=== PATIENT | male | born 1965 | race Caucasian/White ===

== ENCOUNTER → 2023-01-16 16:26 | Outpatient (CLI) | payer BC, SELFPAY ==
[2023-01-16 16:39] LABS: Microscopic, Urine URINE MICROSCOPIC (MICROSCOPIC)
[2023-01-16 17:14] LABS: Appearance,Urine CLEAR (Clear); Bilirubin,Urine Negative (Negative); Blood, Urine Negative (Negative); Color,Urine YELLOW (Yellow); Glucose,Urine (UA) Negative (Negative); Ketones,Urine Negative (Negative); Leukocyte Esterase,Urine Negative (Negative); Nitrate,Urine Negative (Negative); Protein,Urine Negative (Negative)
[2023-01-16 17:28] LABS: Microalbumin < 6.000 mg/L (0-16.7)
[2023-01-16 17:37] LABS: WBC,Urine Occasional #/hpf (0-3)
== END ==
PROVIDERS: PCP Family Medicine; Visit Provider Family Medicine
DX: I10 Essential (primary) hypertension (principal)
CPT/HCPCS: 81001; 82043

== ENCOUNTER 2023-11-23 08:46 | Emergency (ER) | payer BC, SELFPAY ==
[2023-11-23 08:55] VITALS: BP 153/94; PULSE 74; RESP 20; TEMP 37.2; O2SAT 98; BMI 29.2
--- NOTE | 2023-11-23 09:16 | ED_ITS ---
Discharge Plan Disposition Patient Disposition: Home, Self-Care Condition: Good Prescriptions Prescriptions: New guaifenesin [Mucinex] 600 mg tablet extended release 12hr 1,200 mg PO BID PRN (Reason: cough) Qty: 20 0RF azithromycin [Zithromax Z-Cecil] 250 mg tablet See Rx Instructions .ROUTE .COMPLEX 5 Days Qty: 6 0RF Rx Instructions: For 250 mg dose pack: take 500 mg today (day 1), then 250 mg for 4 days (days 2-5) prednisone 20 mg tablet 20 mg PO BID 5 Days Qty: 10 0RF albuterol sulfate [Proventil HFA] 90 mcg/actuation HFA aerosol inhaler 2 puff inhalation Q6H PRN (Reason: shortness of breath or wheezing) Qty: 8.5 0RF No Action tamsulosin 0.4 mg capsule 0.4 mg PO DAILY pravastatin 40 mg tablet 40 mg PO DAILY benzonatate 200 mg capsule 200 mg PO Q8HP PRN (Reason: Cough) lisinopril 10 mg tablet 10 mg PO DAILY Patient Comments: TAKE 1 TABLET BY MOUTH EVERY DAY ipratropium bromide 21 mcg (0.03 %) spray,non-aerosol 1 spray INTRANASAL DAILY Referrals Follow up/Referrals: Candelario Mar MD [Primary Care Provider] - See instructions Activity Restrictions/Add. Instructions Additional Instructions/Restrictions: * Start antibiotic today. Be sure to complete entire prescription even if feeling better * Monitor temp. Tylenol every 4 hours as needed and / or ibuprofen every 6 hours as needed ( As long as your primary care physician has told you that it ok to take both. For fever/aches/pains ER if no less than 101 despite Tylenol or Motrin * Humidifier/vaporizer or hot steamy shower * Inhaler every 4-6 hours as needed like we discussed. If unsure how to use it, ask pharmacist to demonstrate how. Should help open airways and improve cough, wheezing, and shortness of breath * Mucinex during the day for your cough and cough suppressant only at night. Be sure to drink lots of water. Insurance may not cover a prescriptions for mucinex. Might be cheaper to get 400mg tablets and take 2 tablet in the morning, mid-day and evening with lots of water. Tessalon Perles will not cause drowsiness but use at bedtime to help stop cough so that you may get some rest. *Start steroid tomorrow. Helps with inflammation therefore, cough and wheezing. Follow directions on the package. Reviewed side effects. Patient reports taking them before. Follow up IMMEDIATELY for new or worsening of symptoms OR no noticeable improvement over the next 48-72 hours. 911 immediately for any life threatening symptoms such as chest pain or difficulty breathing Clinical Impressions Clinical Impression: Bronchitis Sinusitis Qualifiers: Sinusitis location: unspecified location Chronicity: unspecified Qualified Code(s): J32.9 - Chronic sinusitis, unspecified Instructions Patient Instructions: Acute Bronchitis, DI for Sinusitis Discharge ED Provider: Devika Viveros [facility] General Stated complaint: cough, congestion, fever 101, Mode of Arrival: Ambulatory Source of Information: Patient Limitations: No Limitations Time Seen by Provider: 11/23/23 09:16 Description of Symptoms (Recalled from Triage Doc. by RN): PATIENT C/O CONGESTION, FEVER, SORE THROAT, BODY ACHES, COUGH, CHEST HURTING WITH COUGH, RUNNY NOSE AND NAUSEA SINCE SATURDAY HEENT Symptoms (Recalled from RN notes): Yes Resp Symptoms (Recalled from RN notes): Yes Skin Symptoms (Recalled from RN notes): No MS Symptoms (Recalled from RN notes): No Functional Status (Recalled from RN notes): WNL History of Present Illness Provider Complaint: Patient states that he started feeling ill on Saturday States that he has been having sinus congestion/pressure, sore throat, runny nose, fever, chills and nausea States he has a cough and it roberto when he coughs States today he wasnt feeling any better so he came in to get checked Related Data Home Medications Medication Instructions Recorded Confirmed benzonatate 200 mg capsule 200 mg PO Q8HP PRN Cough 07/18/19 11/23/23 pravastatin 40 mg tablet 40 mg PO DAILY 07/18/19 11/23/23 tamsulosin 0.4 mg capsule 0.4 mg PO DAILY 07/18/19 11/23/23 ipratropium bromide 21 mcg (0.03 1 spray intranasal DAILY 11/23/23 11/23/23 %) nasal spray lisinopril 10 mg tablet 10 mg PO DAILY 11/23/23 11/23/23 Previous Rx's Medication Instructions Recorded albuterol sulfate 90 mcg/actuation 2 puff inhalation Q6H PRN 11/23/23 aerosol inhaler (Proventil HFA) shortness of breath or wheezing #8.5 grams azithromycin 250 mg tablet See Rx Instructions PO .COMPLEX 5 11/23/23 (Zithromax Z-Cecil) days #6 tabs guaifenesin 600 mg tablet, 1,200 mg (2 x 600 mg) PO BID PRN 11/23/23 extended release 12 hr (Mucinex) cough #20 tabs prednisone 20 mg tablet 20 mg PO BID 5 days #10 tabs 11/23/23 Allergies Allergy/AdvReac Type Severity Reaction Status Date / Time clavulanic acid AdvReac Severe vomiting Verified 07/18/19 17:33 Worker's Comp Is this a Worker's Comp case?: No [facility] Disclaimer: The information contained in this section may have been updated after the patient was seen, as this information can be updated by other users. Medical History (Updated 11/23/23 @ 09:28 by Devika Viveros APRN) GERD (gastroesophageal reflux disease) Prostate disorder Hyperlipidemia Hypertension Surgical History (Updated 11/23/23 @ 09:09 by Sera Mata RN) History of knee surgery History of hernia repair Social History Smoking Status: Never smoker alcohol intake: never current occupational status: employed Travel in the last 8 weeks: None ROS Obtained: Yes All systems reviewed & no additional complaints except as documented and Yes Systems reviewed as appropriate & no additional complaints except as documented Constitutional Constitutional: Reports system reviewed and no additional complaints, except as documented, Reports as per HPI, Reports chills and Reports fever(s) ENT Ears, Nose, Mouth, and Throat: Reports system reviewed and no additional complaints, except as documented, Reports as per HPI, Reports nasal discharge, Reports sinus pain, Reports sinus pressure and Reports sore throat Cardiovascular Cardiovascular: Reports system reviewed and no additional complaints, except as documented and Reports as per HPI Respiratory Respiratory: Reports system reviewed and no additional complaints, except as documented, Reports as per HPI, Denies shortness of breath, Reports chest congestion and Reports cough Gastrointestinal Gastrointestingal: Reports system reviewed and no additional complaints, except as documented, as per HPI and nausea Physical Exam General General appearance: alert and in no apparent distress ENT ENT exam: Present mucous membranes moist Expanded ENT Exam Nose exam: Present sinus tenderness Throat exam: Present other (Pharyngeal erythema noted with PND) Respiratory Respiratory exam: Present normal lung sounds bilaterally; Absent respiratory distress or wheezes Cardiovascular Cardiovascular exam: Present regular rate, normal rhythm and normal heart sounds Neurological Exam Neurological exam: Present alert, oriented X3 and normal gait Medical Decision Making Dawson Inquiry Pt receiving controlled substance: No Dawson was queried for this patient: No Vital Signs: 11/23/23 08:55 Temperature 99.0 F Temperature Source Oral Pulse Rate [Left Brachial] 74 Respiratory Rate 20 Blood Pressure [Left Arm] 153/94 H Blood Pressure Mean [Left Arm] 113 Blood Pressure Source [Left Arm] Automatic Cuff Blood Pressure Position [Left Arm] Sitting 02 Sat by Pulse Oximetry 98 Oxygen Delivery Method Room Air Lab Data Lab results reviewed: Yes I reviewed the patient's lab results.
[2023-11-23 09:18] LABS: UTC Influenza A Antigen Negative (Negative); UTC Influenza B Antigen Negative (Negative); UTC Strep Screen (Rapid) Negative (Negative)
[2023-11-23] MEDS: METHYLPREDNISOLONE SOD SUCC 125MG VIAL 125 MG IM (09:29)
[2023-11-23 09:30] VITALS: BP 153/94; PULSE 74; RESP 20; TEMP 37.2; O2SAT 98
== END 2023-11-23 09:51 | disposition home or self-care (01) ==
PROVIDERS: Emergency Provider Nurse Practitioner; PCP Family Medicine
DX: J20.9 Acute bronchitis, unspecified (principal); J01.90 Acute sinusitis, unspecified; R50.9 Fever, unspecified; R07.0 Pain in throat; R05.9 Cough, unspecified
CPT/HCPCS: 87804; 87880; 96372; 99204; 99212; G0463

== ENCOUNTER 2025-04-12 08:42 | Outpatient (CLI) | payer BC, SELFPAY ==
--- OUTSIDE RECORDS SUMMARY | 2025-02-22 16:00 | XMS_ITS | Encounter Summary ---
Author Organization [facility] Address [address] [place] [id number] Care Team Providers Care Historic Sites Registrar Name Role Phone Candelario Mar MD Primary Care Provider [phone] Reason for Visit * Reason Comments right side rib pain Encounter Details Date Type Department Care Team (Late st Contact Info) Description 02/22/2025 4:00 PM EDT Office Visit [facility] [address] [facility] [address] [place] [address] Candelario Mar MD [address] [place] [address] Rib injury (Primary Dx); Skin lesion of left arm; Essential hypertension; Mixed hyperlipidemia; Screening PSA (prostate specific antigen) Social History Tobacco Use Types Packs/Day Years Used Date Smoking Tobacco: Never Smokeless Tobacco: Never Tobacco Cessation:Counseling Given: Not Answered Comments:N/A Alcohol Use Standard Drinks/Week Comments Not Currently 0 (1 standard drink = 0.6 oz pur e alcohol) N/A PHQ-2 Answer Date Recorded Retired PHQ-9: Brief Depression Severity Measure Score 0 07/20/2022 PHQ-2 Answer Date Recorded Patient Health Questionnaire-2 Score 0 08/03/2024 Sex and Gender Information Value Date Recorded Sex Assigned at Male 02/16/2025 9:27 AM EDT Legal Sex Male 11:41 AM EDT Gender Identity Not on file Sexual Orientation Straight 02/16/2025 9: 27 AM EDT documented as of this encounter Last Filed Vital Signs Vital Sign Reading Time Taken Comments Blood Pressure 120/82 02/22/2025 3:20 PM EDT Pulse 60 02/22/2025 3:20 PM EDT Temperature 36.8 C (98.2 F) 02/22/2025 3:20 PM EDT Respiratory Rate - - Oxygen Saturation - - Inhaled Oxygen Concentration - - Weight 91.4 kg (201 lb 6.4 oz) 02/22/2025 3:20 P M EDT Height 173 cm (5' 8.11 ) 02/22/2025 3:20 PM EDT Body Mass Index 30.52 02/22/2025 3:20 PM EDT documented in this encounter Progress Notes * Candelario Mar MD - 02/22/2025 4:00 PM EDT Images from the original note were not included. Chief Complaint Min Garcia Jr. is a 59 y.o. male presenting for right side rib pain. 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 Works full-time at [employer] - plans to retire 2027. 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 Patient has past medical history of sarcoidosis from 2005, did lung biopsy at [facility], had follow-up with pulmonology until 2008, was also evaluated by cardiology. He was started on lisinopril byhis hall coordinator in 2005. Had 2 episodes of pancreatitis in 2005 and 2012, osteoarthritis of both knees, colon polyps and lipoma of the colon in 2018, 2021, recommended repeat in 3 years (2024). He also has a history of GERD, hyperlipidemia, vitamin D deficiency and BPH. History of Present Illness Patient is here for acute visit. He tells me he had a minor injury about 4 weeks ago. He was leaning over a box,, and pressure was applied to the lower ribs on his right side. He heard a pop and afterwards significant pain of this area. Within the first few days his pain got worse, has been stable for 3 weeks and over the last 4 days his pain has started improving. He was taking ibuprofen 600 mg for symptom relief. It has been so mewhat painful to sleep on his right side, so he has been sleeping on his left side instead. No significant pain with breathing. He tells me he has several family members with different forms of cancers, and it had him a little bit concerned. He is otherwise feeling healthy, he has gained some weight. He has good appetite. He also would like me to have a look at the spot on his left arm. He has not seen dermatology. The following portions of the patient's history were reviewed and updated as appropriate: allergies, current medications, past family history, past medical history, past social history, past surgicalhistory, and problem list. Objective BP 120/82 (BP Location: Left arm, Patient Position: Sitting, Cuff Size: Large Adult) Pulse 60 Temp 98.2 ??F (36.8 ??C) (Temporal) Ht 173 cm (68.11 ) Wt 91.4 kg (201 lb 6.4 oz) BMI 30.52 kg/m?? Physical Exam Vitals reviewed. Constitutional: Appearance: Normal appearance. HENT: Head: Normocephalic and atraumatic. Nose: Nose normal. No congestion. Eyes: Extraocular Movements: Extraocular movements intact. Conjunctiva/sclera: Conjunctivae normal. Cardiovascular: Rate and Rhythm: Normal rate and regular rhythm. Heart sounds: Normal heart sounds. No murmur heard. Pulmonary: Effort: Pulmonary effort is normal. No respiratory distress. Breath sounds: Normal breath sounds. No wheezing. Chest: Comments: Tenderness to palpation Musculoskeletal: Cervical back: Neck supple. Skin: General: Skin is warm and dry. Neurological: Mental Status: He is alert and oriented to person, place, and time. Mental status is at baseline. Psychiatric: Behavior: Behavior normal. Thought Content: Thought content normal. Assessment/Plan 1. Rib injury Based on the trauma, course with worsening pain the first days, and now improving after about 3 weeks, this is the picture of rib fracture. This would be considered adequate trauma, and I did offer chest x-ray. I would not expect this to be from a cancer, but I cannot say for certain without imaging. For now he wants to hold off on x-ray. For now we will hold off and monitor symptoms. He can safely take ibuprofen for pain relief 2. Skin lesion of left arm This looks like seborrheic keratosis. This is not a concerning skin spot. We did discuss option to refer for skin cancer screening with senior scientist, but he wants to hold off for now 3. Essential hypertension BP Readings from Last 3 Encounters: 02/22/25 120/82 08/03/24 136/78 08/01/23 134/62 Blood pressure improved and now close to ideal. Continue on current medications. Recheck blood workbefore next visit, or potentially do blood work day of visit. - CBC (No Diff); Future - Comprehensive Metabolic Panel; Future 4. Mixed hyperlipidemia Stable. Continue on pravastatin. Recheck blood work for annual visit - Lipid Panel; Future 5. Screening PSA (prostate specific antigen) Lab Results Component Value Date PSA 0.620 08/03/2024 PSA 0.550 08/01/2023 PSA 0.901 07/20/2022 Patient is interested in continued screening. Will recheck A1c before next visit - PSA Screen; Future Return if symptoms worsen or fail to improve, for Next scheduled follow up. Future Appointments Provider Department Center 08/04/2025 8:30 AM (Arrive by 8:15 AM) Candelario Mar MD [facility] [place] Candelario Mar MD Family Medicine 02/22/2025 documented in this encounter Plan of Treatment Upcoming Encounters Date Type Department Care Team (Late st Contact Info) Description 08/04/2025 8:30 AM EST Office Visit [facility] [address] [phone] Candelario Mar MD [address] [address] Scheduled Orders Name Type Priority Associated Diagnoses Orde r Schedule PSA Screen Lab Routine Screening PSA (prostate specific antigen) Expected: 08/21/2025 (Approximate), Expires: 02/22/2026 CBC (No Diff) Lab Routine Essential hypertension Expected: 08/21/2025 (Approximate), Expires: 02/22/2026 Comprehensive Metabolic Panel Lab Routine Essential hypertension Expected: 08/21/2025 (Approximate), Expires: 02/22/2026 Lipid Panel Lab Routine Mixed hyperlipidemia Expected: 08/21/2025 (Approximate), Expires: 02/22/2026 documented as of this encounter Visit Diagnoses Diagnosis Rib injury- Primary Sprain and strain of ribs Skin lesion of left arm Unspecified disorder of skin and subcutaneous tissue Essential hypertension Unspecified essential hypertension Mixed hyperlipidemia Screening PSA (prostate specific antigen) Special screening for malignant neoplasm of prostate documented in this encounter Care Teams Historic Sites Registrar Relationship Specialty Start Date End Date Candelario Mar MD [address] [place] [address] PCP - General Family Medicine 07/13/20 documented as of this encounter
[2025-04-12 15:04] LABS: Coronavirus 19, PCR Not Detected (NotDetected); Influenza A, PCR Not Detected (NotDetected); Influenza B, PCR Not Detected (NotDetected)
--- OUTSIDE RECORDS SUMMARY | 2025-04-13 10:45 | XMS_ITS | Encounter Summary ---
Author Organization [facility] Address [address] [place] [address] Care Team Providers Care Truck Driver Heavy Name Role Phone Candelario Mar MD Primary Care Provider + [phone] Reason for Visit * Reason Onset Date Comments Appointment 03/19/2025 Encounter Details Date Type Department Care Team (Late st Contact Info) Description 03/19/[address] [facility]STRO[facility]OLOG[facility] [address] [phone] Tyson Ibarra MD [address] [place] [address] Appointment Social History Tobacco Use Types Packs/Day Years Used Date Smoking Tobacco: Never Smokeless Tobacco: Never Comments:N/A Alcohol Use Standard Drinks/Week Comments Not [...] AM EDT documented as of this encounter Miscellaneous Notes * Telephone Encounter - Carol Ann Schwartz RegSched Rep - 03/19/2025 10:48 AM EDT Hub staff attempted to follow warm transfer process and was unsuccessful Caller: Min Garcia Jr. Relationship to patient: Self Best call back number: [phone] Patient is needing: PT CALLING TO SCHEDULE FROM RECALL LETTER, PLS CALL PT BACK. documented in this encounter Plan of Treatment Upcoming Encounters Date Type Department Care Team (Late st Contact Info) Description 08/04/2025 8:30 AM EST Office Visit [facility] INTER[facility] MEDICINE [address] [phone] Candelario Mar MD [id number] [address] documented as of this encounter Visit Diagnoses Not on filedocumented in this encounter Care Teams Truck Driver Heavy Relationship Specialty Start Date End Date Candelario Mar MD [address] [address] PCP - General Family Medicine 07/13/20 documented as of this encounter
--- OUTSIDE RECORDS SUMMARY | 2025-04-13 10:45 | XMS_ITS | Encounter Summary ---
Author Organization [facility] Address [address] [place] [address] Care Team Providers Care Outreach Nurse Name Role Phone Candelario Mar MD Primary Care Provider + [phone] Encounter Details Date Type Department Care Team (Latest Contact Info) Description 02/22/2025 Travel Social History Tobacco Use Types Packs/Day Years [...] AM EDT documented as of this encounter Plan of Treatment Upcoming Encounters Date Type Department Care Team (Late st Contact Info) Description 08/04/2025 8:30 AM EST Office Visit [facility] INTER[facility] MEDIC[facility] [address] [phone] Candelario Mar MD [address] [address] documented as of this encounter Visit Diagnoses Not on filedocumented in this encounter Care Teams Outreach Nurse Relationship Specialty Start Date End Date Candelario Mar MD [address] [place] [address] PCP - General Family Medicine 07/13/20 documented as of this encounter
--- OUTSIDE RECORDS SUMMARY | 2025-04-13 10:45 | XMS_ITS | Encounter Summary ---
Author Organization [facility] Address [address] [place] [id number] Care Team Providers Care Liquefaction Supervisor Name Role Phone Candelario Mar MD Primary Care Provider + [phone] Reason for Visit * Reason Comments Med Refill Encounter Details Date Type Department Care Team (Late st Contact Info) Description 02/16/2025 Refill [facility] [address] [phone] Candelario Mar MD [address] [address] Benign prostatic hyperplasia with lower urinary tract symptoms, symptom details unspecified; Mixed hyperlipidemia Social History Tobacco Use Types Packs/Day Years [...] Description 08/04/2025 8:30 AM EST Office Visit [facility] [address] [phone] Candelario Mar MD [address] [address] documented as of this encounter Visit Diagnoses Diagnosis Benign prostatic hyperplasia with lower urinary tract symptoms, symptom details unspecified Mixed hyperlipidemia documented in this encounter Care Teams Liquefaction Supervisor Relationship Specialty Start Date End Date Candelario Mar MD [address] [address] PCP - General Family Medicine 07/13/20 documented as of this encounter
--- OUTSIDE RECORDS SUMMARY | 2025-04-13 10:45 | XMS_ITS | Clinical Summary ---
Author Organization [facility] Address [address] [place] [address] Care Team Providers Care Service Desk Technician Name Role Phone Candelario Mar MD Primary Care Provider + [phone] Allergies Active Allergy Reactions Criticality Noted Date Comments Amoxicillin-Pot Clavulanate Nausea And Vomiting 05/26/2021 Morphine Other (See Comments) 07/13/2020 Bolus reaction Rapid HR Penicillins Nausea And Vomiting 07/20/2022 diarrhea Medications cholecalciferol (VITAMIN D3) 25 MCG (1000 UT) tablet Take 1 tablet by mouth Daily. Active Policosanol 10 MG capsule Take by mouth 2 (two) times a day. Active ascorbic acid (VITAMIN C) 500 MG tablet Take 1 tablet by mouth Daily. Active multivitamin (THERAGRAN) tablet tablet Take 1 tablet by mouth Daily. Active Probiotic Product (PROBIOTIC DAILY PO) Every Night. 1 Active Digital Therapy (Hello Heart Blood Pressure) kit 2 Active famotidine (PEPCID) 20 MG tablet Take 1 tablet by mouth Every Night. Active lisinopril (PRINIVIL,ZESTRIL) 10 MG tabletIndications:E ssential hypertension TAKE 1 TABLET BY MOUTH EVERY DAY 90 tablet 1 5 Active tamsulosin (FLOMAX) 0.4 MG capsule 24 hr capsuleIndications: Benign prostatic hyperplasia with lower urinary tract symptoms, symptom details unspecified TAKE 1 CAPSULE BY MOUTH EVERY DAY 90 capsule 1 5 Active pravastatin (PRAVACHOL) 40 MG tabletIndications:M ixed hyperlipidemia TAKE 1 TABLET BY MOUTH EVERYDAY AT BEDTIME 90 tablet 1 Active Active Problems Problem Noted Date Diagnosed Date Great toe pain, right 08/03/2024 Carpal tunnel syndrome of right wrist 08/03/2024 Gastroesophageal reflux disease without esophagi tis 07/20/2022 Mixed hyperlipidemia 07/20/2022 Overweight (BMI 25.0-29.9) 07/13/2020 History of pancreatitis 07/13/2020 History of sarcoidosis 07/13/2020 Essential hypertension 07/13/2020 History of colon polyps 07/13/2020 Overview (07/13/2020): Colonoscopy 2018 . Repeat colonoscopy 3 years. Primary osteoarthritis of both knees 07/13/2020 Overview (07/13/2020): 2018 on Xray both knees. Having symptoms Benign prostatic hyperplasia with lower urinary tract symptoms 07/13/2020 Resolved Problems Problem Noted Date Diagnosed Date Resolved Date Physical exam, annual 07/13/20202021 Encounters Date Type Department Care Team Description 03/19/2025 Telephone [facility] [address] [facility] [address] [place] [address] Tyson Ibarra MD Appointment 02/22/2025 4:00 PM EDT Office Visit [facility] INTERNAL MEDICINE [address] [address] Candelario Mar MD Rib injury (Primary Dx); Skin lesion of left arm; Essential hypertension; Mixed hyperlipidemia; Screening PSA (prostate specific antigen) 02/22/2025 Travel 02/16/2025 Refill [facility] [address] [facility] [address] [place] [address] Candelario Mar MD Benign prostatic hyperplasia with lower urinary tract symptoms, symptom details unspecified; Mixed hyperlipidemia 02/02/2025 Refill [facility] [address] [facility] [address] [place] [address] Candelario Mar MD Essential hypertension from Last 3 Months Immunizations Immunization Administration Dates Next Due COVID-19 (MODERNA) 1st,2nd,3 rd Dose Monovalent 05/28/2021,08/22/2020,07/21/2020 COVID-19 (MODERNA) BIVALENT 12+YRS 06/15/2022 Flu Vaccine Intradermal Quad 18-64YR 04/21/2021 Fluzone Quad >6mos (Multi-dose) 06/01/2020,04/07 Hepatitis A 12/09/2018 Hepatitis B 03/28/1999,10/10/1998,08/16/1998 Influenza, Unspecified 07/24/2024,04/26/2023,06/2022 Shingrix 01/23/2018 Tdap 07/20/2022,03/27/2012,07/16/2008 Family History Medical History Relation Name Comments Cancer Father Min Garcia Sr Hypertension Father Min Garcia Sr Anesthesia problems Mother PatsyLiiesha Sick fro m anesthesia Cancer Mother PatsyLiley Anxiety disorder Paternal Grandfather Angelito Garcia Arthritis Paternal Grandfather Angelito Garcia Diabetes Paternal Grandfather Angelito Garcia Dece ased Anxiety disorder Paternal Grandmother Cathy Laicabrera Garcia Diabetes Paternal Grandmother Cathy Redding Radha Dec eased Relation Name Status Comments Father Min Garcia Sr Mother PatsyLiley Paternal Grandfather Angelito Rollinsjakecabrera Paternal Grandmother Cathy Laicabrera Garcia Social History Tobacco Use Types Packs/Day Years [...] Orientation Straight 02/16/2025 9: 27 AM EDT Last Filed Vital Signs Vital Sign Reading Time Taken Comments Blood Pressure 120/82 02/22/2025 3:20 PM EDT Pulse 60 02/22/2025 3:20 PM EDT Temperature 36.8 C (98.2 F) 02/22/2025 3:20 PM EDT Respiratory Rate - - Oxygen Saturation 97% 08/01/2023 12:42 PM EST Inhaled Oxygen Concentration - - Weight 91.4 kg (201 lb 6.4 oz) 02/22/2025 3:20 P M EDT Height 173 cm (5' 8.11 ) 02/22/2025 3:20 PM EDT Body Mass Index 30.52 02/22/2025 3:20 PM EDT Plan of Treatment Upcoming Encounters Date Type Department Care Team (Late st Contact Info) Description 08/04/2025 8:30 AM EST Office Visit [facility] INTERNAL [facility] [address] [address] Candelario Mar MD [address] [address] Health Maintenance Due Date Last Done Comments COLOGUARD 2012 COLON CANCER SCREENING 5 YEA R SIGMOIDOSCOPY [address] COLONOGRAPHY 2012 FECAL OCCULT BLOOD TEST 2012 FIT Testing (1 year) 2012 Pneumococcal Vaccine 50+ (1 of 1 - PCV) 2017 ZOSTER VACCINE (2 of 2) 03/20/2018 01/23/2018 INFLUENZA VACCINE 02/12/2025 07/24/2024, , 04/25/2022, Additional history exists COLONOSCOPY 06/01/2025 06/01/2022, 04/14, 04/24/2019, Additional history exists COLORECTAL CANCER SCREENING 06/01/2025 ANNUAL PHYSICAL 08/03/2025 08/03/2024 LIPID PANEL 08/03/2025 08/03/2024, 07/15, 07/20/2022, Additional history exists TDAP/TD VACCINES (4 - Td or Tdap) 07/20/2032 07/20/2022, 03/27/2012, 07/16/2008 HEPATITIS C SCREENING Completed 07/13/2020 Procedures Procedure Name Priority Date/Time Associated Diagnosis Comments LIPID PANEL Routine 08/03/2024 10:26 AM EST Mixed hyperlipidemia SCANNED - COLONOSCOPY 06/01/2022 HEPATITIS C ANTIBODY Routine 07/13/2020 10:18 AM EST Need for hepatitis C screening test from Last 3 Months or Most Recently Relevant to Health Maintenance Results * Lipid Panel (08/03/2024 10:26 AM EST) Total Cholesterol 146 0 - 200 mg/dL 08/03/2024 7:13 PM EST [facility] Triglycerides 66 0 - 150 mg/dL 08/03/2024 7:13 PM EST [facility] HDL Cholesterol 45 40 - 60 mg/dL 08/03/2024 7:13 PM EST [facility] LDL Cholesterol 88 0 - 100 mg/dL 08/03/2024 7:13 PM EST [facility] VLDL Cholesterol 13 5 - 40 mg/dL 08/03/2024 7:13 PM [facility] LDL/HDL Ratio 1.95 08/03/2024 7:13 PM [facility] Blood Venipuncture / Unknown 08/03/2024 10:26 AM EST 08/03/2024 10:26 AM EST [facility] - 08/03/2024 7:13 PM EST Cholesterol Reference Ranges (U.S. Department of Health and Human Services ATP III Classifications) Desirable <200 mg/dL Borderline High 200-239 mg/dL High Risk >240 mg/dL Triglyceride Reference Ranges (U.S. Department of Health and Human Services ATP III Classifications) Normal <150 mg/dL Borderline High 150-199 mg/dL High 200-499 mg/dL Very High >500 mg/dL HDL Reference Ranges (U.S. Department of Health and Human Services ATP III Classifications) Low <40 mg/dl (major risk factor for CHD) High >60 mg/dl ('negative' risk factor for CHD) LDL Reference Ranges (U.S. Department of Health and Human Services ATP III Classifications) Optimal <100 mg/dL Near Optimal 100-129 mg/dL Borderline High 130-159 mg/dL High 160-189 mg/dL Very High >189 mg/dL Candelario Mar MD LAB BLOOD ORDERABLES Final R esult Performing Organization Address [facility] Co de Phone Number [facility]
[address] [place] [address], * SCANNED - COLONOSCOPY (06/01/2022) Tyson Ibarra MD CHART REVIEW TABS Final Result * Hepatitis C Antibody (07/13/2020 10:18 AM EST) Hepatitis C Ab Non-Reacti ve Non-Reacti ve 07/13/2020 11:26 PM EST [facility] Blood Venipuncture / Unknown 07/13/2020 10:18 AM EST 07/13/2020 10:18 AM EST Narrative [facility] - 07/13/2020 11:26 PM EST Results may be falsely decreased if patient taking Biotin. Candelario Mar MD LAB BLOOD ORDERABLES Final R esult Performing Organization Address [facility] de Phone Number [facility]
[address] [place] [address], from Last 3 Months or Most Recently Relevant to Health Maintenance Insurance Care Teams Service Desk Technician Relationship Specialty Start Date End Date Candelario Mar MD [address] [place] [address] PCP - General Family Medicine 07/13/20
--- OUTSIDE RECORDS SUMMARY | 2025-04-13 10:45 | XMS_ITS | Clinical Summary ---
Author Organization [facility] Address [address] [place] [address] Care Team Providers Care Awning Hanger Helper Name Role Phone Candelario Mar MD Primary Care Provider Medications lisinopril 5 MG tablet TAKE 1 TABLET BY MOUTH TWICE A DAY 180 tablet 1 04/12/2021 Active Immunizations Immunization Administration Dates Next Due Hep A, Adult 12/09/2018 Influenza, seasonal, injectable, preservative fr ee 04/07/2015 Tdap 03/27/2012,07/16/2008 Zoster, Recombinant 01/23/2018 Family History Medical History Relation Name Comments Cancer Father Conversions - Other Father Acute Ly mphoma Glaucoma Father Heart disease Father Hypertension Father Cancer Maternal Grandmother Heart disease Mother Thyroid disease Mother Arthritis Other 1 Diabetes Other 2 Heart disease Other 3 Hypercholesterolemia Other 4 Kidney disease Other 5 Kidney failure Paternal Grandfather Heart attack Paternal Grandmother Heart disease Sister Allergies Son 1 Asthma Son 2 Relation Name Status Comments Father Maternal Grandmother Mother Other 1 Other 2 Other 3 Other 4 Other 5 Paternal Grandfather Paternal Grandmother Sister Son 1 Son 2 Social History Tobacco Use Types Packs/Day Years Used Date Smoking Tobacco: Never Alcohol Use Standard Drinks/Week Comments No 0 (1 standard drink = 0.6 oz pure alcohol) Alcoholic Drinks/day: Never Drank Alcohol Sex and Gender Information Value Date Recorded Sex Assigned at Not on file Legal Sex Male 8:31 PM EDT Gender Identity Not on file Sexual Orientation Not on file Last Filed Vital Signs Vital Sign Reading Time Taken Comments Blood Pressure 118/87 01/18/2020 9:39 AM EDT Pulse 65 06/17/2019 4:33 PM EST Temperature 36.3 C (97.4 F) 01/18/2020 9:39 AM EDT Respiratory Rate - - Oxygen Saturation - - Inhaled Oxygen Concentration - - Weight 84.8 kg (186 lb 15.9 oz) 01/18/2020 9:39 AM EDT Height 175.3 cm (5' 9 ) 06/17/2019 4:33 PM EST Body Mass Index 27.61 06/17/2019 4:33 PM EST Plan of Treatment Health Maintenance Due Date Last Done Comments [facility]-Depression Screening 1967 [facility]-Infant/Child/Adol SDOH Screenings 1967 [facility]- SDOH Screenings 1985 [facility]-Adult SDOH Screenings 1985 CT Colonography 2012 FIT-DNA 2012 FIT 2012 FOBT 2012 Sigmoidoscopy 2012 [facility]-Pneumococcal Vaccine: 50 + Years (1 of 1 - PCV) 2017 [facility]-Zoster Vaccines (2 of 2) 03/20/2018 01/23/2018 [facility]-DTaP,Tdap,and Td Vaccine s (3 - Td or Tdap) 03/27/2022 03/27/2012, 07/16/2008 [id number] Vaccine (1 - season) 2025 [facility]-Influenza Vaccine (#1) 2025 04/07/2015 Colonoscopy 04/24/2029 04/24/2019 [facility]-Colorectal Cancer Screening 04/24/2029 [facility]-Hepatitis B Vaccines Completed 999, 10/10/1998, 08/16/1998 [facility]-Hepatitis A Vaccines Aged Out 12/09/2018 No longer eligible based on patient's age to complete this topic HPV Vaccines Aged Out No longer eligi ble based on patient's age to complete this topic [facility]-HIB Vaccines Aged Out No longer e ligible based on patient's age to complete this topic [facility]-IPV Vaccines Aged Out No longer e ligible based on patient's age to complete this topic [facility]-Rotavirus Vaccines Aged Out No lo nger eligible based on patient's age to complete this topic Procedures Procedure Name Priority Date/Time Associated Diagnosis Comments COLONOSCOPY 04/24/2019 from Last 3 Months or Most Recently Relevant to Health Maintenance Results * COLONOSCOPY (04/24/2019) Anatomical Region Laterality Modality Endoscopy Narrative 04/24/2019 Ordered by an unspecified provider. us Historical Provider GI PROCEDURE ORDERABLES Lashonda l Result from Last 3 Months or Most Recently Relevant to Health Maintenance Care Teams Awning Hanger Helper Relationship Specialty Start Date End Date Candelario Mar MD [address] [facility] [address] [place] [address] PCP - General Family Medicine 09/06/21
--- OUTSIDE RECORDS SUMMARY | 2025-04-13 10:45 | XMS_ITS | Encounter Summary ---
Author Organization [facility] Address [address] [place] [id number] Care Team Providers Care Terminologist Name Role Phone Candelario Mar MD Primary Care Provider + [phone] Reason for Visit * Reason Onset Date Comments Med Refill 08/22/2023 Encounter Details Date Type Department Care Team (Late st Contact Info) Description 08/22/2023 Refill [facility] INTERNAL MEDICINE [address] [phone] Candelario Mar MD [address] [place] [address] Essential hypertension Social History Tobacco Use Types Packs/Day Years Used Date Smoking Tobacco: Never Smokeless Tobacco: Never Comments:N/A Alcohol Use Standard Drinks/Week Comments Not Currently 0 (1 standard drink = 0.6 oz pur e alcohol) N/A PHQ-2 Answer Date Recorded Retired PHQ-9: Brief Depression Severity Measure Score 0 07/20/2022 PHQ-2 Answer Date Recorded Retired PHQ-9: Brief Depression Severity Measure Score 0 07/20/2022 Sex and Gender Information Value Date Recorded Sex Assigned at Male 02/16/2025 9:27 AM EDT Legal Sex Male 11:41 AM EDT Gender Identity Not on file Sexual Orientation Straight 02/16/2025 9: 27 AM EDT documented as of this encounter Plan of Treatment Upcoming Encounters Date Type Department Care Team (Late st Contact Info) Description 08/04/2025 8:30 AM EST Office Visit [facility] INTERNAL MEDICINE [address] [facility] [address] [place] [address] Candelario Mar MD [address] [address] documented as of this encounter Visit Diagnoses Diagnosis Essential hypertension Unspecified essential hypertension documented in this encounter Care Teams Terminologist Relationship Specialty Start Date End Date Candelario Mar MD [address] [address] PCP - General Family Medicine 07/13/20 documented as of this encounter
== END 2025-04-12 23:59 ==
LOC: LAB.DROPOF 04-13 10:40
PROVIDERS: PCP Student in an Organized Health Care Education/Training Program; Visit Provider Student in an Organized Health Care Education/Training Program
DX: J06.9 Acute upper respiratory infection, unspecified (principal)
CPT/HCPCS: 87636